=== PATIENT | female | born 1955 | race Caucasian/White ===

== ENCOUNTER 2016-10-26 13:01 | Outpatient (RCR) | payer MEDICARE, BC ==
[2015-07-17 17:22] VITALS: BP 166/81
[~2016-10-26 13:01] MED LIST: ALDACTONE 25MG25 MG PO; ALLEGRA 180MG180 MG PO; ALLOPURINOL100 MG PO; ATIVAN1 M1 PO; AVAPRO TAB150 MG/TAB PO; BENTYL 20MG TAB20 MG PO; BIMATOPROST OP; BISCOLAX10 M1 RC; BUDESONIDE0.5 MG/2 M INH; CALCIUM CARB W/1 TA1 PO; CALCIUM CARBONA1 TA2 PO; COLCRYS0.6 MG PO; COMBIGAN 0.2%-0.5 ML OU; COQ10150 MG PO; COREG25 MG PO; COUMADIN 22.5 MG/TAB PO; COUMADIN 5MG5 MG/TAB PO; CRANBERRY PO; CRANBERRY400 M3 PO; CYANOCOBAL1000 MCG/1 IM; DEMADEX 20MG20 M1 PO; DEMADEX20 MG PO; DIPHENHYDRAMINE25 MG PO; DURAGESIC TOP; DURAGESIC50 MCG/PAT TD; ED PHENERG6 TAB/BOTT PO; FENTANYL 75MCG TP; FENTANYL T100 MCG/HR TD; HUMALOG PEN100 U/ML SQ; HYDROCODONE/APAP PO; INTESTINEX1 CA1 PO; KEFLEX250 M1 PO; L-CARNITINE500 MG PO; LORTAB 10/3251 TAB PO; LOSARTAN POTAS100 MG PO; METOLAZONE5 MG PO; MULTIPLE VITAMI1 CAP PO; NATURE'S BLEND F1 MG PO; NITROGLYCERIN0.4 M1 PO; OXYCODONE HCL10 M1 PO; POTASSIUM CH2 MEQ/ML PO; POTASSIUM CHLO20 ME3 PO; PREDNISONE 5MG5 MG PO; RELION HUMUL100 U/ML SQ; ROBAXIN 75750 MG/TA1 PO; ROBAXIN 75750 MG/TAB PO; RT ALBUTER2.5 MG/0.5 IH; SINGULAIR PO; SINGULAIR10 MG PO; SOTALOL HYDROCH80 MG PO; STARLIX60 M1 PO; VIBRAMYCIN100 MG PO; VITAMIN B11000 MCG/M IM; VITAMIN D32000 I1 PO; ZYLOPRIM100 MG PO; ZYLOPRIM300 MG PO; [UNRECOGNIZED DRUG - OTHER] TOP
== END 2016-12-23 15:02 | disposition home or self-care (01) ==
LOC: PT 13:01
DX: R53.1 Weakness (principal); Z74.09 Other reduced mobility
CPT/HCPCS: G0283-GP

== ENCOUNTER 2017-04-28 14:00 | Outpatient (RCR) | payer MEDICARE, BC ==
[2015-07-17 17:22] VITALS: BP 166/81
== END 2017-04-28 14:30 | disposition home or self-care (01) ==
LOC: PT 14:00
DX: R53.1 Weakness (principal); L03.115 Cellulitis of right lower limb

== ENCOUNTER → 2017-06-20 | Outpatient (CLI) | payer MEDICARE, BC ==
[2015-07-17 17:22] VITALS: BP 166/81
== END ==
LOC: RAD 10:56
DX: N39.0 Urinary tract infection, site not specified (principal)

== ENCOUNTER → 2018-02-07 | Outpatient (CLI) | payer MEDICARE, BC ==
[2015-07-17 17:22] VITALS: BP 166/81
== END ==
LOC: RAD 09:41
DX: S49.91XA Unspecified injury of right shoulder and upper arm, initial encounter (principal); W19.XXXA Unspecified fall, initial encounter

== ENCOUNTER → 2018-03-14 | Outpatient (CLI) | payer MEDICARE, BC ==
[2015-07-17 17:22] VITALS: BP 166/81
== END ==
LOC: RAD 11:39
DX: M50.31 Other cervical disc degeneration, high cervical region (principal); M48.02 Spinal stenosis, cervical region

== ENCOUNTER → 2018-03-15 | Outpatient (CLI) | payer MEDICARE, BC ==
[2015-07-17 17:22] VITALS: BP 166/81
== END ==
LOC: RAD 13:07
DX: M25.511 Pain in right shoulder (principal)
CPT/HCPCS: J3301; Q9967

== ENCOUNTER → 2018-03-20 | Outpatient (CLI) | payer MEDICARE, BC ==
[2015-07-17 17:22] VITALS: BP 166/81
[2018-03-20 06:20] LABS: PROTHROMBIN TIME 15.9 SECONDS (9.0-12.0)
== END ==
LOC: LAB 05:20
PROVIDERS: Internal Medicine
DX: I48.0 Paroxysmal atrial fibrillation (principal)

== ENCOUNTER 2018-03-23 16:20 | Emergency (ER) | payer MEDICARE, BC ==
[~2018-03-23] VITALS: Ht 160 cm; Wt 116.8 kg
[2018-03-23] MEDS ORDERED: BENADRYL (16:34)
[2018-03-23] MEDS ORDERED: COENZYME Q10100 M1 PO (16:35)
[2018-03-23] MEDS ORDERED: CYMBALTA30 M1 PO (16:36)
[2018-03-23] MEDS ORDERED: DEPAKOTE250 M1 PO (16:36)
[2018-03-23] MEDS ORDERED: KEFLEX250 M1 PO (16:38)
[2018-03-23] MEDS ORDERED: GLUCOTROL 5M5 MG/TAB PO (16:38)
[2018-03-23] MEDS ORDERED: INSULIN HUMA100 U/ML SQ (16:38)
[2018-03-23] MEDS ORDERED: PERCOCET 325 MG1 TAB PO (16:40)
[2018-03-23] MEDS ORDERED: OXYCONTIN15 M1 PO (16:50)
[2018-03-23] MEDS ORDERED: OXAYDO7.5 MG PO (16:59)
[2018-03-23] MEDS ORDERED: PRIMLEV PO (17:02)
[2018-03-23 17:50] VITALS: BP 133/62
== END 2018-03-23 17:10 | disposition home or self-care (01) ==
LOC: ED 16:20
DX: G89.29 Other chronic pain (principal); M75.101 Unspecified rotator cuff tear or rupture of right shoulder, not specified as traumatic

== ENCOUNTER → 2018-03-28 | Outpatient (CLI) | payer MEDICARE, BC ==
[2018-03-23 17:50] VITALS: BP 133/62
[~2018-03-28] MED LIST changes: +BENADRYL; +COENZYME Q10100 M1 PO; +CYMBALTA30 M1 PO; +DEPAKOTE250 M1 PO; +GLUCOTROL 5M5 MG/TAB PO; +INSULIN HUMA100 U/ML SQ; +OXAYDO7.5 MG PO; +OXYCONTIN15 M1 PO; +PERCOCET 325 MG1 TAB PO; +PRIMLEV PO
== END ==
LOC: LAB 16:13
DX: J02.9 Acute pharyngitis, unspecified (principal)

== ENCOUNTER 2018-04-02 11:53 | Emergency (ER) | payer MEDICARE, BC ==
[~2018-04-02 11:53] MED LIST changes: -AMLODIPINE BESYL5 MG PO; -AMOXICILLIN 50500 MG PO; -COUMADIN 2MG2 MG/TAB PO; -DAILY VITAMIN1 EAC1 PO; -DURAGESIC75 MCG/PAT TD; -IMODIUM A-D2 M2 PO; -LATANOPROST 2.2.5 ML OU; -PERCOCET 325 MG1 TA5 PO; -PHENERGAN 25 TA25 MG PO; -PURE & GENTLE 330 ML OU; -TORSEMIDE20 M1 PO; -ZINC SULFATE220 MG PO
[2018-04-02] MEDS ORDERED: AMLODIPINE BESYL5 MG PO (12:17)
[2018-04-02] MEDS ORDERED: AMOXICILLIN 50500 MG PO (12:18)
[2018-04-02] MEDS ORDERED: BENADRYL (12:21)
[2018-04-02] MEDS ORDERED: PURE & GENTLE 330 ML OU (12:21)
[2018-04-02] MEDS ORDERED: DURAGESIC75 MCG/PAT TD (12:27)
[2018-04-02] MEDS ORDERED: COUMADIN 2MG2 MG/TAB PO (12:30)
[2018-04-02] MEDS ORDERED: IMODIUM A-D2 M2 PO (12:34)
[2018-04-02] MEDS ORDERED: DAILY VITAMIN1 EAC1 PO (12:40)
[2018-04-02] MEDS ORDERED: PERCOCET 325 MG1 TA5 PO (12:44)
[2018-04-02] MEDS ORDERED: TORSEMIDE20 M1 PO (12:48)
[2018-04-02] MEDS ORDERED: LATANOPROST 2.2.5 ML OU (12:49)
[2018-04-02] MEDS ORDERED: PHENERGAN 25 TA25 MG PO (12:54)
[2018-04-02] MEDS ORDERED: ZINC SULFATE220 MG PO (12:54)
[2018-04-02 12:59] LABS: HEMATOCRIT 40.2 % (37.0-47.0); HEMOGLOBIN 12.7 g/dL (12.5-16.0); MEAN CELL VOLUME 100 fl (78-100); MEAN CORPUSCULAR HEMOGLOBIN 32 pg (27-31); MEAN CORPUSCULAR HGB CONC 32 g/dL (33-37); MEAN PLATELET VOLUME 10.1 fl (7.4-10.4); PLATELET COUNT 267 K/mm3 (130-400); RED BLOOD COUNT 4.02 M/mm3 (4.10-5.30); RED CELL DISTRIBUTION WIDTH 14.3 % (11.5-14.5); WHITE BLOOD COUNT 13.8 K/mm3 (4.8-10.8)
[2018-04-02 13:10] LABS: ALBUMIN 3.3 g/dL (3.5-5.0); BUN/CREATININE RATIO 25.4 (6.0-26.0); CALCIUM 8.6 mg/dL (8.4-10.2); POTASSIUM 3.9 mmol/L (3.6-5.0); TOTAL BILIRUBIN 0.4 mg/dL (0.2-1.3); TOTAL PROTEIN 6.3 g/dL (6.3-8.2)
[2018-04-02 13:15] LABS: LYMPHOCYTE 15 % (20-51); MONOCYTE 2 % (3-10); NEUTROPHILS 81 % (42-75)
[2018-04-02 13:17] LABS: TROPONIN-I < 0.03 ng/mL (0.00-0.06)
[2018-04-02 13:59] LABS: URINE APPEARANCE CLEAR; URINE BILIRUBIN NEGATIVE (NEGATIVE); URINE BLOOD NEGATIVE (NEGATIVE); URINE COLOR YELLOW; URINE GLUCOSE NEGATIVE (NEGATIVE); URINE KETONE NEGATIVE (NEGATIVE); URINE LEUKOCYTE ESTERASE NEGATIVE (NEGATIVE); URINE NITRATE NEGATIVE (NEGATIVE); URINE PROTEIN(semi-quant) 1+ mg/dL (NEGATIVE); URINE UROBILINOGEN NORMAL (NORMAL)
[2018-04-02 16:51] VITALS: BP 119/53
== END 2018-04-02 17:35 | disposition short-term general hospital (02) ==
LOC: ED 11:53
PROVIDERS: Nurse Practitioner Primary Care
DX: A41.9 Sepsis, unspecified organism (principal); S71.002A Unspecified open wound, left hip, initial encounter; T81.89XA Other complications of procedures, not elsewhere classified, initial encounter; R10.814 Left lower quadrant abdominal tenderness; E66.9 Obesity, unspecified; Z90.5 Acquired absence of kidney; Z79.01 Long term (current) use of anticoagulants; Z88.1 Allergy status to other antibiotic agents; Z88.2 Allergy status to sulfonamides; Z79.899 Other long term (current) drug therapy; Z79.4 Long term (current) use of insulin; E11.22 Type 2 diabetes mellitus with diabetic chronic kidney disease; I12.9 Hypertensive chronic kidney disease with stage 1 through stage 4 chronic kidney disease, or unspecified chronic kidney disease; N18.9 Chronic kidney disease, unspecified
CPT/HCPCS: J1170; J2405; J2543; J3370; J7030; J7040; Q9967

== ENCOUNTER → 2018-04-02 | Outpatient (CLI) | payer MEDICARE, BC ==
[2018-03-23 17:50] VITALS: BP 133/62
[~2018-04-02] MED LIST changes: +AMLODIPINE BESYL5 MG PO; +AMOXICILLIN 50500 MG PO; +COUMADIN 2MG2 MG/TAB PO; +DAILY VITAMIN1 EAC1 PO; +DURAGESIC75 MCG/PAT TD; +IMODIUM A-D2 M2 PO; +LATANOPROST 2.2.5 ML OU; +PERCOCET 325 MG1 TA5 PO; +PHENERGAN 25 TA25 MG PO; +PURE & GENTLE 330 ML OU; +TORSEMIDE20 M1 PO; +ZINC SULFATE220 MG PO
== END ==
LOC: RAD 10:45
DX: M79.89 Other specified soft tissue disorders (principal); Z98.890 Other specified postprocedural states

== ENCOUNTER 2018-05-06 16:00 | Outpatient (RCR) | payer MEDICARE, BC ==
[2018-05-04 16:37] VITALS: BP 150/85
[2018-05-05 16:00] VITALS: BP 165/89
[~2018-05-06] VITALS: Ht 160 cm; Wt 124.8 kg
[~2018-05-06 16:00] MED LIST changes: +AMLODIPINE BESYL5 MG PO; +AMOXICILLIN 50500 MG PO; +COUMADIN 2MG2 MG/TAB PO; +DAILY VITAMIN1 EAC1 PO; +DURAGESIC75 MCG/PAT TD; +IMODIUM A-D2 M2 PO; +LATANOPROST 2.2.5 ML OU; +PERCOCET 325 MG1 TA5 PO; +PHENERGAN 25 TA25 MG PO; +PURE & GENTLE 330 ML OU; +TORSEMIDE20 M1 PO; +ZINC SULFATE220 MG PO
[2018-05-06 17:01] VITALS: BP 144/88
== END 2018-05-06 18:00 | disposition home or self-care (01) ==
LOC: AMSURD 16:00
DX: S71.002A Unspecified open wound, left hip, initial encounter (principal); B95.62 Methicillin resistant Staphylococcus aureus infection as the cause of diseases classified elsewhere; Z95.828 Presence of other vascular implants and grafts; Z45.2 Encounter for adjustment and management of vascular access device; Z48.00 Encounter for change or removal of nonsurgical wound dressing
CPT/HCPCS: J0878

== ENCOUNTER → 2018-05-31 | Outpatient (CLI) | payer MEDICARE, BC ==
[2018-05-30 10:21] VITALS: BP 171/66
== END ==
LOC: LAB 11:17
DX: E04.1 Nontoxic single thyroid nodule (principal)

== ENCOUNTER 2018-06-02 10:30 | Outpatient (RCR) | payer MEDICARE, BC, OTHER ==
[2018-05-29 10:15] VITALS: BP 155/79
--- NOTE | 2018-05-29 10:30 | NUR ---
Attempt x 2 to access port in R chest. Upon initial attempt, there was no blood return, pt c/o increased pain at insertion site and denies "tasting" NS, of which approx 5ml of flush was pushed prior to d/c needle. Accessed port on 2nd attempt without difficulty, brisk blood return and flushed easily.
[2018-05-29 11:22] VITALS: BP 169/88
[2018-05-30 09:16] VITALS: BP 165/89
[2018-05-30 10:21] VITALS: BP 171/66
--- NOTE | 2018-05-31 11:10 | NUR ---
LAB DRAWN FROM PORT PRIOR TO STARTING ABX INFUSION.
[2018-05-31 11:14] VITALS: BP 166/96
[2018-05-31 12:22] VITALS: BP 170/91
[2018-06-01 10:34] VITALS: BP 178/87
[2018-06-01 11:38] VITALS: BP 170/105
[~2018-06-02] VITALS: Ht 160 cm; Wt 124.8 kg
[2018-06-02 10:42] VITALS: BP 164/73
[2018-06-02 11:49] VITALS: BP 159/73
--- NOTE | 2018-06-02 12:33 | NUR ---
Cayla, RN at [facility] contacted at this time. Cayla faxed over order from Dr. Tinoco saying that Gentamicin should be stopped today, 06/02. This RN asked Cayla to pull patient's port. Cayla states she will pull port-a-cath at this time.
[2018-08-27] MEDS ORDERED: ELIQUIS5 MG PO (16:51)
[2018-08-27] MEDS ORDERED: METHADONE HYDROC5 MG PO (16:52)
[2018-08-27] MEDS ORDERED: DOXYCYCLINE HY200 MG PO (16:53)
== END 2018-08-27 | disposition home or self-care (01) ==
LOC: AMSURD
PROVIDERS: Family Medicine
DX: N39.0 Urinary tract infection, site not specified (principal); B99.9 Unspecified infectious disease
CPT/HCPCS: J1580; J1644

== ENCOUNTER → 2018-06-08 | Outpatient (CLI) | payer MEDICARE, BC ==
[2018-06-02 11:49] VITALS: BP 159/73
== END ==
LOC: RAD 12:56
DX: R22.41 Localized swelling, mass and lump, right lower limb (principal)

== ENCOUNTER → 2018-08-27 | Outpatient (CLI) | payer MEDICARE, BC ==
[~2018-08-27] MED LIST changes: +DOXYCYCLINE HY200 MG PO; +ELIQUIS5 MG PO; +METHADONE HYDROC5 MG PO
[2018-08-27 18:26] LABS: ALBUMIN 3.2 g/dL (3.5-5.0); POTASSIUM 4.8 mmol/L (3.6-5.0); TOTAL BILIRUBIN 0.2 mg/dL (0.2-1.3)
== END ==
LOC: LAB 16:15
PROVIDERS: Family Medicine
DX: E83.59 Other disorders of calcium metabolism (principal)

== ENCOUNTER 2018-08-29 16:37 | Outpatient (RCR) | payer MEDICARE, BC ==
[2018-08-27 16:16] VITALS: BP 124/53
[2018-08-27 17:18] VITALS: BP 138/85
[2018-08-27 17:54] VITALS: BP 152/88
[~2018-08-29] VITALS: Ht 160 cm; Wt 124.8 kg
[2018-08-29 16:22] VITALS: BP 133/72
[~2018-08-29 16:37] MED LIST changes: +BENADRYL PO; +COZAAR25 M1 PO; +DOXYCYCLINE HY150 M1 PO; -DOXYCYCLINE HY200 MG PO; +IPRATROPIUM BROM3 M1 IH; -LOSARTAN POTAS100 MG PO; +METHADONE HYDRO10 MG PO; -METHADONE HYDROC5 MG PO; -RT ALBUTER2.5 MG/0.5 IH; +ZYLOPRIM 100MG100 MG PO; -ZYLOPRIM300 MG PO
[2018-08-29 17:26] VITALS: BP 142/74
[2018-09-06] MEDS ORDERED: METOCLOPRAMIDE H5 M1 PO (15:51)
[2018-09-06] MEDS ORDERED: LIDOCAINE PAIN1 EACH TOP (15:51)
[2018-09-06] MEDS ORDERED: DOCUSATE SODIUM1 TA3 PO (15:52)
[2018-09-06] MEDS ORDERED: ACETAMINOPHEN325 M1 PO (15:57)
[2018-09-06] MEDS ORDERED: ALBUTEROL2.5 MG/3 M IH (16:00)
[2018-09-06] MEDS ORDERED: ALPHAGAN OU (16:01)
[2018-09-06] MEDS ORDERED: COENZYME Q10100 M1 PO (16:03)
[2018-09-06] MEDS ORDERED: OXYCONTIN15 M1 PO (16:07)
[2018-09-06] MEDS ORDERED: XYLIMELTS550 MG PO (16:09)
[2018-09-06] MEDS ORDERED: GLUCOTROL 5M5 MG/TAB PO (16:35)
[2018-09-18] MEDS ORDERED: PHENERGAN 25 TA25 MG PO (11:16)
[2018-09-18] MEDS ORDERED: ACETAMINOPHEN-H1 TA2 PO (11:18)
[2018-09-18] MEDS ORDERED: METOCLOPRAMIDE H5 M1 PO (11:20)
== END 2018-11-25 | disposition still patient (30) ==
LOC: AMSURD
DX: E83.59 Other disorders of calcium metabolism (principal); F11.90 Opioid use, unspecified, uncomplicated; Z79.84 Long term (current) use of oral hypoglycemic drugs; Z79.899 Other long term (current) drug therapy
CPT/HCPCS: J2405

== ENCOUNTER 2018-09-06 09:55 | Inpatient (IN) | payer MEDICARE, BC ==
[~2018-09-06] VITALS: Ht 160 cm; Wt 124.8 kg
--- NOTE | 2018-09-06 15:14 | NUR ---
PATIENT ARRIVES TO FACILITY FOR SWINGBED ADMIT FROM [facility]. DAUGHTER TRANSPORTED. PATIENT ABLE TO PIVOT TRANSFER WITH MINIMAL ONE PERSON ASSIST. PATIENT RATES PAIN 8/10. SHE DOES HAVE CHRONIC PAIN AND REPORTS A TOLERABLE NUMBER AT 7/10 OR BELOW. NURSE REPORT RECEIVED FROM NATALIE AT [facility]; HER NUMBER FOR ANY QUESTIONS IS [phone]. NATALIE REPORTED THAT PORT-A-CATH WAS ACCESSED AND HAD ORDERS TO DE-ACCESS PRIOR TO DC, BUT PATIENT WAS REFUSING. PATIENT DOES ARRIVE WITH PORT-A-CATH ACCESSED. NEXT NEEDLE CHANGE DUE FOR 09/09/18. PATIENT REPORTED TO NATALIE THAT SHE RECEIVED SODIUM THIOSULFATE M,W,F AN OUTPATIENT AT THIS FACILITY PRIOR TO HER HOSPITAL ADMISSION AND SHE WAS HOPING TO RESUME THOSE INFUSIONS A SWINGBED.
[2018-09-06 15:21] VITALS: BP 150/97
[2018-09-06] MEDS ORDERED: METOCLOPRAMIDE H5 M1 PO (15:51)
[2018-09-06] MEDS ORDERED: LIDOCAINE PAIN1 EACH TOP (15:51)
[2018-09-06] MEDS ORDERED: DOCUSATE SODIUM1 TA3 PO (15:52)
[2018-09-06] MEDS ORDERED: ACETAMINOPHEN325 M1 PO (15:57)
[2018-09-06] MEDS ORDERED: ALBUTEROL2.5 MG/3 M IH (16:00)
[2018-09-06] MEDS ORDERED: ALPHAGAN OU (16:01)
[2018-09-06] MEDS ORDERED: COENZYME Q10100 M1 PO (16:03)
[2018-09-06 16:07] VITALS: BP 150/97
[2018-09-06] MEDS ORDERED: OXYCONTIN15 M1 PO (16:07)
[2018-09-06] MEDS ORDERED: XYLIMELTS550 MG PO (16:09)
[2018-09-06] MEDS ORDERED: GLUCOTROL 5M5 MG/TAB PO (16:35)
--- NOTE | 2018-09-06 17:15 | NUR ---
YASSINE, UTILITY PIPE LAYER, AT BEDSIDE WITH PATIENT FOR DIETARY EVAL.
[2018-09-06 17:33] LABS: EOS % 7.3 % (1.0-5.0); HEMATOCRIT 36.3 % (37.0-47.0); HEMOGLOBIN 11.9 g/dL (12.5-16.0); MEAN CELL VOLUME 88 fl (78-100); MEAN CORPUSCULAR HEMOGLOBIN 29 pg (27-31); MEAN CORPUSCULAR HGB CONC 33 g/dL (33-37); MEAN PLATELET VOLUME 10.7 fl (7.4-10.4); NEU # 4.6 (1.40-6.50); PLATELET COUNT 351 K/mm3 (130-400); RED BLOOD COUNT 4.13 M/mm3 (4.10-5.30); RED CELL DISTRIBUTION WIDTH 14.9 % (11.5-14.5); WHITE BLOOD COUNT 11.4 K/mm3 (4.8-10.8)
[2018-09-06 17:39] LABS: ALBUMIN 3.1 g/dL (3.5-5.0); CALCIUM 9.1 mg/dL (8.4-10.2); POTASSIUM 3.4 mmol/L (3.6-5.0); TOTAL BILIRUBIN 0.3 mg/dL (0.2-1.3); TOTAL PROTEIN 6.3 g/dL (6.3-8.2)
[2018-09-06 17:55] LABS: EOS # 0.8 (0.04-0.40); LYMPH# 4.8 (1.50-4.00)
[2018-09-06 18:32] VITALS: BP 140/77
--- NOTE | 2018-09-06 19:30 | NUR ---
Bedside shift report received from Luna Quintana RN. Pt resting in bed, awake and a/o x 3. Son at bedside. Pt denied having any needs or concerns at this time.
--- NOTE | 2018-09-06 22:30 | NUR ---
Pt requested that her pain medication be reviewed tomorrow. I informed pt that I would report this to the day shift. Pt agreed.
--- NOTE | 2018-09-06 22:30 | NUR ---
Pt c/o of "over all body pain." Given norco PO for pt. Given sugarfree jello, ate 100%
--- NOTE | 2018-09-07 04:33 | NUR ---
Awake and a/o x 3, resting in bed. Has been wearing C-Pap. C/o's of over all body pain. Rates pain 9 out 10. Given norco PO.
[2018-09-07 06:25] VITALS: BP 158/78
--- NOTE | 2018-09-07 06:50 | NUR ---
Dr Schaeffer into see pt. No new orders
--- NOTE | 2018-09-07 07:25 | NUR ---
Bedside shift report given to Amanda Magallanes RN
--- NOTE | 2018-09-07 07:30 | NUR ---
Q hourly checks done. Bed alarm set and call light with in reach of pt.
--- NOTE | 2018-09-07 14:30 | NUR ---
Pt calls for additional pain Rx. Inform that [place] is q6h to which pt states, "well don't I have something for breakthrough?" Pt is informed that she has [place] for breakthrough pain which she then requests. Pt reports that she is having "sciatica" pain to the R buttock and describes as "pins and needles". Ask pt how long she has been sitting up in chair and pt agrees that she has been up to WC for 2-3 hours and pain could be related to positioning. Pt did take lidocaine patch from top of R foot and place on R buttock to attempt ease pain. Pt is assisted to BR and back into bed by AIRPORT SALES AGENT.
--- NOTE | 2018-09-07 17:43 | NUR ---
Pt is lying in bed on R side, looking as though she is going to fall out of bed. Attempt to athletic coach pt to move herself over in bed, she is unable to do so. Add draw sheet to bed and with assist of two, assist pt to move up and toward the middle of bed.
[2018-09-07 19:00] VITALS: BP 96/61
--- NOTE | 2018-09-07 20:30 | NUR ---
Report received from Amanda BISHOP. Patient rests in bed. States she has to go to BR. Assisted to W/C with one assist and gait belt. Transfers from W/C to toilet with SBA using grab bar. Voids 300 ML of dark yellow cloudy urine. Dons own pajamas. Assisted back to bed with some assistance to get feet up in bed. Assessment completed. Requires on Port a cath being flushed. "it wasn't flushed today and it should be. Port flushed with 10 ML of NS and 5 ML of heparin. Flushed easily with good blood return. Reviewed HS medications. Patient states that her Oxycodone should be every 4 hours vs the 6 hours ordered. "I thought pallative care called today and got that straightened out". This nurse inquires to day nurse. Orders received from [facility] copied and hightlighted and provided to patient. Orders from [facility] state every 6 hours. Day nurse also advises that Pallative care did call and patient oxycodone was to be IR instead of ER which we are now giving. "I will just have to call my daughter then". This nurse also advised that it was reported that patent received Narcan at some point at and maybe that is why the dose was cut down but that by no means am I being judgmental or can speak for the ordering Dr or Dr's. Patient states "I heard that too, but thats not why I went to the ER, it's because I didn't wear this thing, pointing to her CPAP.
--- NOTE | 2018-09-07 22:59 | NUR ---
Reports stomach upset. Asking for something. Reglan 5 MG given PO. Asking when she can have more pain medication. Advised Midnight for scheduled Oxycodone. Asked about PRN Hydrocodone. Advised she had that at 2030 and could have again at 0. States to CHARGEBACK ANALYST that she just wants to sit up on the EOB at this time. She is in "too much pain".
--- NOTE | 2018-09-07 23:11 | NUR ---
Reports pain, asking for pain medication early. Advised she has Tylenol ordered. Refused. "can't that give it to me early?". My sciatica is acting up. Offered and agreeable to try a K-pad.
--- NOTE | 2018-09-08 | NUR ---
Scheduled Roxicodone given at this time. Patient also request Phenergan at this time for continues nausea, not releaved by Reglan. Phenergan taken also at this time. Lays down in bed at this time and puts on CPAP. Rates pain 10/10. Denies further wants or needs.
--- NOTE | 2018-09-08 02:39 | NUR ---
Currently resting quietly with CPAP in place. No signs of pain or distress. Bed alarm on. Call light in reach.
--- NOTE | 2018-09-08 03:17 | NUR ---
Calls and requests warm blanket and pain pill for pain 05/07. "all over". [place] 1 tab taken. Repositioned for comfort.
--- NOTE | 2018-09-08 05:50 | NUR ---
Awaken for scheduled AM medications. Had removed CPAP. States she took it off around 0530. Encouraged to wear. Takes AM medications. Denies wants or needs.
[2018-09-08 06:25] VITALS: BP 120/71
--- NOTE | 2018-09-08 07:17 | NUR ---
Report to Colleen BISHOP.
--- NOTE | 2018-09-08 07:50 | NUR ---
Pt awakened for breakfast. Pleasant. Able to rise from bed and get self into w/c with minimal assist. Pt to BR to void and then into recliner for breakfast. Pt c/o pain "right sciatica" this am and received breakthrough pain med this am. 9/10 on 10 scale. Telemetry continues - atrial fib rates 70's. Call light in reach and chair alarms on.
--- NOTE | 2018-09-08 10:00 | NUR ---
To BR using w/c - voids and washes up while in BR w/ warm cloth wipes. Assisted w/ pericare and assisted w/ dressing. Transfers w/ minimal assist to w/c and performs own am cares and returns to recliner. Denies further needs.
--- NOTE | 2018-09-08 15:20 | NUR ---
Pt requested back to bed and took short nap. Up to recliner at this time using w/c and minimal assist.
--- NOTE | 2018-09-08 17:57 | NUR ---
Pt given reglan per request for nausea. UP in chair - transfers from w/c w/ little assist. Took dinner well.
[2018-09-08 18:38] VITALS: BP 125/85
--- NOTE | 2018-09-08 19:26 | NUR ---
Pt agreeable to miralax for lack of stool x 2-3 days. Pt reports she thinks gout is returning to her right foot. Notified. Pt up in recliner. Denies further needs at this time. call light in reach and chair alarm on. Report to DARIO Larios.
--- NOTE | 2018-09-08 23:30 | NUR ---
Used call light, up to bathroom per wheel chair. No c/o's of pain. When asked pt C/o's of "all over body pain." Rates pain 9 out 10. Given scheduled oxycodone 15mg PO.
--- NOTE | 2018-09-09 06:10 | NUR ---
0600 Pt c/o of "over all body pain." Given oxycodone PO. C/o of nausea given phenergan PO.
[2018-09-09 06:22] VITALS: BP 111/74
--- NOTE | 2018-09-09 07:05 | NUR ---
Bedside shift report given to Colleen Thomas RN
--- NOTE | 2018-09-09 08:25 | NUR ---
Blood drawn from port for lab. 10 mls wasted, 8 mls drawn and Port flushed w/ 10 mls of NS and 5 mls of heplock.
[2018-09-09 08:52] LABS: CALCIUM 8.6 mg/dL (8.4-10.2); POTASSIUM 3.5 mmol/L (3.6-5.0)
[2018-09-09 08:53] LABS: EOS # 0.4 (0.04-0.40); HEMATOCRIT 34.1 % (37.0-47.0); HEMOGLOBIN 10.6 g/dL (12.5-16.0); LYMPH# 3.6 (1.50-4.00); MEAN CELL VOLUME 90 fl (78-100); MEAN CORPUSCULAR HEMOGLOBIN 28 pg (27-31); MEAN CORPUSCULAR HGB CONC 31 g/dL (33-37); MEAN PLATELET VOLUME 10.5 fl (7.4-10.4); MONO # 0.6 (0.20-0.80); NEU # 2.6 (1.40-6.50); PLATELET COUNT 357 K/mm3 (130-400); RED BLOOD COUNT 3.78 M/mm3 (4.10-5.30); RED CELL DISTRIBUTION WIDTH 15.4 % (11.5-14.5); WHITE BLOOD COUNT 7.3 K/mm3 (4.8-10.8)
[2018-09-09 09:40] LABS: ERYTHROCYTE SEDIMENTATION RATE 30 mm/hr (0-30)
--- NOTE | 2018-09-09 13:15 | NUR ---
Pt's daughter here briefly and brings an essential oil diffuser for pt's room per pt's request. Pt denies further needs. Pt up in recliner working puzzles.
--- NOTE | 2018-09-09 15:07 | NUR ---
Discussed new prn cholchicine - pt information given. Given 1 tab for "bad" right great toe pain. Pt up to BR - transfer to w/c w/ SBA and then to toilet - voids and then returns to bed. Pt states she hasn't stooled x 2 days (has had miralax and senna) - options given. Pt would like to try her "smooth move tea" and will have son bring it in.
--- NOTE | 2018-09-09 16:40 | NUR ---
Port deaccessed at this time as needle needs changed today. Talked with pt and decided to leave port deaccessed until needed for further lab draws. Pt information given on colchicine per pt's request.
[2018-09-09 18:32] VITALS: BP 105/60
--- NOTE | 2018-09-09 19:15 | NUR ---
Jonathan Becerra given per pt's request. Dr. Mccarty notified that pt commented that she usually ups her allopurinol when has gout flare. Pt resting in bed - no further requests at this time. Report to SOCRATES English>
--- NOTE | 2018-09-09 20:30 | NUR ---
Report received from Colleen BISHOP. Patient resting in bed. A/O x4. Rates pain after [place] 04/06. "it's my Sciatica". Assessment completed. Scheduled HS medications taken. Utilizing K-Pad PRN for pain. Denies wants or needs. Bed alarm on. Call light in reach.
--- NOTE | 2018-09-09 23:30 | NUR ---
Requests pain and nausea medication. Scheudled Oxycodone and Phenergan given. CLIENT SUPPORT ADMINISTRATOR in to assist to BR and with CPAP. SCD's on. Denies further wants or needs.
--- NOTE | 2018-09-10 05:51 | NUR ---
Am medication taken. Refuses Doxycycline at this time. Wants to wait until she eats something.
[2018-09-10 06:23] VITALS: BP 109/54
--- NOTE | 2018-09-10 07:31 | NUR ---
Report to Barbara BISHOP.
--- NOTE | 2018-09-10 12:25 | NUR ---
Aston Solano APRN notified of itchy rash under bilateral breast, worse on right.
--- NOTE | 2018-09-10 16:14 | NUR ---
Cristela palliative care nurse of Dr. Garcia at [facility] called with instructions to increase methadone dose. Currently taking methadone 7.5mg at 0900 and 2100. New orders for additional dose of 5mg at 1500. Aston Solano APRN notified. Patient updated. Cristela states that she will call the patient's daughter to update her on the plan of care.
--- NOTE | 2018-09-10 18:28 | NUR ---
Eduardo Flores APRN at bedside to assess rash under breast.
[2018-09-10 18:59] VITALS: BP 134/83
--- NOTE | 2018-09-10 21:30 | NUR ---
Report received from Barbara BISHOP. Patient resting supine in bed with bed alarm on. A/O x4. Rates pain 04/06. R sided schiatica and R great toe pain. Had scheduled analgesic 30 min ago. Assessment completed. Asks for copy of current lab and copies provided. Diet coke given per request. Denies further wants or needs.
[2018-09-11 06:30] VITALS: BP 116/72
--- NOTE | 2018-09-11 07:07 | NUR ---
Report to Barbara BISHOP.
[2018-09-11 18:51] VITALS: BP 131/71
--- NOTE | 2018-09-11 21:30 | NUR ---
Report received from Barbara BISHOP. Patient resting in bed. A/O x4. Assisted to BR with SBA to W/C-toilet- W/C-Bed. Voiding clear yellow urine. Requests and given [place] 1 tab for pain, rated 9/10. States her Sciatica pain is "better" but her R foot continues to hurt and she has chronic pain "all over". Lungs CTA, diminished in bases due to body habitus. Denies cough. States she did get "short of breath" during her shower today and over all fatiqued. Area below breast, especially R breast continues to bed red and angry looking. Nystatin powder applied and interdry placed. TELE in place, continues to be in A-fib. R foot remains with 2+ edema. Accu check 248. Received 4 Units SS Novolog in GOOD. Denies further wants or needs. CPAP applied.
--- NOTE | 2018-09-12 | NUR ---
Pain level 9/10 per report. Scheduled Oxycodone received. Requests and given Phenergan at this time. Request sugar free pudding. Ate 100%.
--- NOTE | 2018-09-12 03:34 | NUR ---
Calls and requests [place] for pain to R hip 05/07. [place] and diet coke provided per request.
[2018-09-12 06:15] VITALS: BP 107/69
--- NOTE | 2018-09-12 07:22 | NUR ---
Report to Shreya BISHOP.
--- NOTE | 2018-09-12 07:30 | NUR ---
REPORT RECEIVED FROM JUAN PALBO. PATIENT IN ROOM SLEEPING WITH DOOR SHUT DURING REPORT.
--- NOTE | 2018-09-12 13:30 | NUR ---
APPLIED UNNA BOOTS TO BILATERAL LOWER LEGS TODAY AT PATIENT'S REQUEST FOR SWELLING/EDEMA. PATIENT TOLERATED WELL.
--- NOTE | 2018-09-12 17:55 | NUR ---
PATIENT WAS UP IN CHAIR AND WHEELCHAIR TODAY. WORKED WITH OT AND OT SUGGESTS THAT WHEN PATIENT STANDS TO TRANSFER TO HAVE HER CONTINUE TO STAND, FOR UP TO 30 SECONDS BEFORE SITTING BACK DOWN TO GAIN STRENGTH IN HER LEGS. PATIENT IS WANTING TO DO THIS WELL AND IS WILLING TO SIT UP MORE. PATIENT DOES C/O OF PAIN AND MEDS ARE GIVEN SCHEDULED WITH [place] Q 4 HOURS WELL. PATIENT HAD HER DOCTOR APPOINTMENTS RESCHEDULED TO NEXT WEEK POST DISCHARGE. HER DAUGHTER BROUGHT IN HER ELECTRIC WHEELCHAIR FOR HER TO USE WITH THERAPY. LOOKING AT DISCHARGE NEXT MONDAY.
[2018-09-12 18:22] VITALS: BP 113/84
--- NOTE | 2018-09-12 20:45 | NUR ---
Requesting [place] for pain to R lower back/Sciatica pain 05/07. Scheduled HS medications and PRN [place] given at this time. Accucheck 188. Received 2 Units of Humalog insulin. Assessment completed. Unaboots in place to BLE. Denies wants or needs.
[2018-09-13 06:21] VITALS: BP 123/72
--- NOTE | 2018-09-13 07:45 | NUR ---
Report to Amanda BISHOP.
--- NOTE | 2018-09-13 10:00 | NUR ---
Pt A&O. Is requesting [place] in addition to Oxycontin and Methadone. Also requests PRN phenergan along with scheduled Reglan. Pt is educated about giving Reglan a chance to work prior to adding phenergan. Pt reluctantly agreed then called a short time later requesting again. Pt also requests that time of admin of [place] be written down on whiteboard.
[2018-09-13 18:36] VITALS: BP 110/73
--- NOTE | 2018-09-13 19:30 | NUR ---
Bedside shift report received from Amanda Magallanes RN. Pt resting in bed, awake and a/o x 3. No c/o's voiced. Bed alarm set and call light with in reach of pt.
--- NOTE | 2018-09-13 22:38 | NUR ---
C/o's of "over all body pain and gout pain." Rates pain 9.5 out 10. Given scheduled medication and norco PO. Offered food with medication, pt declined. 2220 Pt up to bathroom per electric wheel chair, stand by assistance.
--- NOTE | 2018-09-14 05:00 | NUR ---
Q hourly checks done. Bed alarm set and call light with in reach of pt. Pt has woren Bi-pap mask throughout the night.
--- NOTE | 2018-09-14 05:07 | NUR ---
Awake and a/o x 3. C/o's of right leg and foot pain. Rates pain 9 out 10. Offered norco or to give schedule oxycodone now. Pt request oxycodone. Offered pt food with medication. Pt declined.
[2018-09-14 06:18] VITALS: BP 112/71
--- NOTE | 2018-09-14 07:12 | NUR ---
Bedside shift report given to Christa Mercado RN
--- NOTE | 2018-09-14 07:15 | NUR ---
BEDSIDE REPORT RECEIVED FROM DARIO WANG
--- NOTE | 2018-09-14 08:00 | NUR ---
PATIENT'S SHIFT ASSESSMENT COMPLETE. PATIENT ALERT AND ORIENTED X4. REPORTS HAVING PAIN IN RIGHT FOOT RATED 9/10. PATIENT REPORTS HAVING SHORTNESS OF BREATH. REPORTS THAT SHORTNESS OF BREATH IS UNCHANGED FROM BASELINE. PATIENT REPORTS THAT WEIGHT IS UP THIS MORNING. UNNA BOOTS IN PLACE TO BILAT LOWER EXT. PATIENT ON ROOM AIR. ALL LIGHT WITHIN REACH.
--- NOTE | 2018-09-14 09:30 | NUR ---
REMOVED UNNA BOOTS ON BLE, PER PATIENT REQUEST. SHE WILL WORK WITH OT TODAY WITH SHOWER AT 1030.
--- NOTE | 2018-09-14 10:00 | NUR ---
Carlos COOPER APRN NOTIFIED OF PATIENT'S WEIGHT INCREASE FROM YESTERDAY TO TODAY. NOTIFIED THAT WEIGHT HAS SLOWLY BEEN INCREASING AT THAT ON 09/07/18 IT WAS 267.8. NO NEW ORDERS AT THIS TIME.
--- NOTE | 2018-09-14 15:45 | NUR ---
Pt has chosen [facility] for HH services to include SN/PT/OT/BathAide and Textile Engineer and all disciplines to also work w/ Palliative Care Team. Pt's daughter has rescheduled all of pt's appointments for her convenience after pt is discharged from [facility] on 09-18-18. Palliative Care Team Nurse, Vianney was notified and also notified of HH services to insure there is no duplication of services - there was not. Nursing staff on this date is notified to present pt w/ BIPA form - 2 day MCR notice of discharge on Monday09-16-18 for anticipated discharge to home on 09-18-18.
[2018-09-14 18:52] VITALS: BP 108/69
--- NOTE | 2018-09-14 19:15 | NUR ---
Bedside shift report received from Christa Mercado RN. Pt resting in bed awake and a/o x 3. Bed alarm set and call light with in reach of pt. C/o's of right knee hurting, right leg and right foot. Request norco with evening medication.
--- NOTE | 2018-09-14 19:30 | NUR ---
BEDSIDE REPORT GIVEN TO DARIO WANG
--- NOTE | 2018-09-14 21:06 | NUR ---
Awake and a/o x 3. Sitting up on side of bed eating sandwich for evening snack. C/o's of right leg pain, right knee pain and right foot pain. Rates pain 9 out 10. Given norco 1 PO. Call light with in reach of pt.
--- NOTE | 2018-09-14 22:51 | NUR ---
Pt c/o's of right and left lower legs itching. Legs unwrapped per pt request.
--- NOTE | 2018-09-15 05:57 | NUR ---
0512 Awake and a/o x 3, used electric wheel chair to bathroom. Pt able to stand and transfer from bed to wheel chair and wheel to bathroom. Pt returned to bed. Lower legs continue to unwrapped. Offered to re-wrap pt's legs. Pt declined. C/o of right leg pain and foot pain. Given scheduled oxycodone. Visited with pt in room for approx 30 minutes. Pt pleasant and talkative.
[2018-09-15 06:33] VITALS: BP 138/86
--- NOTE | 2018-09-15 07:10 | NUR ---
BEDSIDE REPORT RECIEVED FROM DARIO WANG
--- NOTE | 2018-09-15 07:15 | NUR ---
Bedside shift report given to Christa Mercado RN
[2018-09-15 18:37] VITALS: BP 129/77
--- NOTE | 2018-09-15 19:33 | NUR ---
BEDSIDE REPORT GIVEN TO DARIO MIMS
--- NOTE | 2018-09-15 20:14 | NUR ---
Assessment complete. Patient resting in bed. Denies pain at this time. Call light and personal belongings within reach. Bed alarm on and active. Will cont to monitor.
--- NOTE | 2018-09-16 01:14 | NUR ---
Report received from Noelle BISHOP. Patient rests in bed with eyes closed. CPAP in place. Bed alarm on. No signs of pain or distress.
--- NOTE | 2018-09-16 01:36 | NUR ---
Rings call light. Requests analgesic and leg wraps removed. States the pain woke her up out of sleep. Rates 05/07. Wraps removed. Hydrocodone 1 tab taken at this time. Up to BR with SBA and motorized scooter. Voids 250 ML of clear yellow urine. Back to bed with SBA. Requests and given diet coke. Bed alarm on. Call light in reach. CPAP on.
[2018-09-16 06:15] VITALS: BP 143/83
--- NOTE | 2018-09-16 07:16 | NUR ---
Report to Christa BISHOP.
[2018-09-16 18:31] VITALS: BP 108/54
--- NOTE | 2018-09-16 20:20 | NUR ---
Report received from Christa BISHOP. Resting in bed, watching [employer] FB game. Requests analgesic for R leg pain 05/07. Scheduled HS medications and PRN [place] taken at this time. Desenex powder applied to R breast. Remains red but much improved. Inner dry applied after Desenex. Assessment completed. Audie wraps applied to BLE per order. Denies further wants or needs. Utilizes electric scooter with SBA for mobility to and from BR. Bed alarm on. Call light in reach.
[2018-09-17 06:11] VITALS: BP 157/89
--- NOTE | 2018-09-17 08:00 | NUR ---
PATIENT'S WEIGHT UP 4 POUNDS FROM YESTERDAY. PATIENT UP 10 POUNDS FROM ADMISSION. PATIENT REPORTS HAVING INCREASED SHORTNESS OF BREATH THIS MORNING WHEN GETTING UP TO GO TO THE BATHROOM. PATIENT'S LOWER EXT DO APPEAR TO BE A LITTLE MORE EDEMATOUS THIS MORNING THAT YESTERDAY FROM THIS NURSES ASSESSMENT. Carlos COOPER APRN NOTIFIED. Carlos COOPER APRN REPORTS THAT PATIENT'S WEIGHT FLUXUATES.STATES WE WILL SEE WHAT PATIENT'S WEIGHT IS TOMORROW. NO NEED FOR INTERVENTION AT THIS TIME
--- NOTE | 2018-09-17 15:00 | NUR ---
PATIENT HAS BRIGHT RED SLIGHTLY RAISED IN SOME AREAS RASH TO RIGHT ARM PIT. PATIENT REPORTS AREA COWART. PATIENT REQUESTED Carlos COOPER APRN LOOK AT RASH. PATIENT ALSO REQUESTED FOLLOW UP URIC ACID LAB BE ORDERED PRIOR TO DISCHARGE. Carlos COOPER APRN NOTIFIED. PROVIDER REPORTS THERE IS NO NEED TO LOOK AT RASH AND TO PUT DESSENEX POWDER ON AREA.
[2018-09-17 18:36] VITALS: BP 136/82
--- NOTE | 2018-09-17 19:45 | NUR ---
Report received from Christa BISHOP. Resting in bed. A/O x4. Rates pain 9/10 to R leg. Requested and given Hydrocodone 1 tab. Assessment completed. Denies wants or needs.
--- NOTE | 2018-09-18 05:51 | NUR ---
Rested on and off through the night with CPAP on. Requested PRN analgesic per her normal routine. Refused leg wraps last night, "My leg is hurting too bad". AM medication taken, Up to BR per mobilized W/C..
[2018-09-18 06:19] VITALS: BP 116/69
--- NOTE | 2018-09-18 07:12 | NUR ---
Report to Amanda BISHOP.
[2018-09-18] MEDS ORDERED: PHENERGAN 25 TA25 MG PO (11:16)
[2018-09-18] MEDS ORDERED: ACETAMINOPHEN-H1 TA2 PO (11:18)
[2018-09-18] MEDS ORDERED: METOCLOPRAMIDE H5 M1 PO (11:20)
--- NOTE | 2018-09-18 12:27 | NUR ---
Discussed d/c instructions with pt and daughter, Emily. Both acknowledge understanding. Pt is given written Rx for Methadone 10mg and [place], contact [facility] and verified availability of Methadone. Inform daughter that all other meds had been escripted to pharmacy. Pt reports that she has already been called by to set up appt time tomorrow. Pt daughter has already taken pt CPAP and electric WC home, last remaining items escorted out via WC with pt at this time. Pt able to stand, step up onto pt provided step and gets self into back seat.
== END 2018-09-18 12:27 | disposition home health service (06) | DRG 947 ==
LOC: MED/SURG 09:55
PROVIDERS: Family Medicine; ADMIT Nurse Practitioner Primary Care
DX: R53.81 Other malaise (principal); G93.41 Metabolic encephalopathy; J96.01 Acute respiratory failure with hypoxia; A41.9 Sepsis, unspecified organism; R65.21 Severe sepsis with septic shock; I13.0 Hypertensive heart and chronic kidney disease with heart failure and stage 1 through stage 4 chronic kidney disease, or unspecified chronic kidney disease; I50.32 Chronic diastolic (congestive) heart failure; Z68.42 Body mass index [BMI] 45.0-49.9, adult; Z66 Do not resuscitate; N18.2 Chronic kidney disease, stage 2 (mild); E11.22 Type 2 diabetes mellitus with diabetic chronic kidney disease; E11.43 Type 2 diabetes mellitus with diabetic autonomic (poly)neuropathy; K31.84 Gastroparesis; Z79.01 Long term (current) use of anticoagulants; Z79.4 Long term (current) use of insulin; M10.9 Gout, unspecified; G89.29 Other chronic pain; I89.0 Lymphedema, not elsewhere classified; E66.01 Morbid (severe) obesity due to excess calories
CPT/HCPCS: J1644; J1815

== ENCOUNTER 2019-01-24 10:45 | Outpatient (RCR) | payer MEDICARE, BC ==
[~2019-01-24 10:45] MED LIST changes: +ACETAMINOPHEN-H1 TA2 PO; +ACETAMINOPHEN325 M1 PO; +ALBUTEROL2.5 MG/3 M IH; +ALPHAGAN OU; +DOCUSATE SODIUM1 TA3 PO; +LIDOCAINE PAIN1 EACH TOP; +METOCLOPRAMIDE H5 M1 PO; +XYLIMELTS550 MG PO
== END 2019-01-24 11:15 | disposition still patient (30) ==
LOC: PT 10:45
DX: G89.4 Chronic pain syndrome (principal); M54.2 Cervicalgia; M25.522 Pain in left elbow; R29.898 Other symptoms and signs involving the musculoskeletal system; Z74.09 Other reduced mobility

== ENCOUNTER → 2019-02-08 | Outpatient (CLI) | payer MEDICARE, BC ==
[~2019-02-08] VITALS: Ht 160 cm; Wt 124.8 kg
[2019-02-08 11:26] VITALS: BP 145/68
== END ==
LOC: LAB 10:28 → AMSURD 10:28 → EDSTATUS 12:43
DX: E87.70 Fluid overload, unspecified (principal); Z99.3 Dependence on wheelchair

== ENCOUNTER → 2019-07-26 | Outpatient (CLI) | payer MEDICARE, BC ==
[2019-03-07 14:30] VITALS: BP 146/86
[2019-07-26 16:30] LABS: HEMATOCRIT 35.6 % (37.0-47.0); HEMOGLOBIN 11.1 g/dL (12.5-16.0); MEAN PLATELET VOLUME 10.2 fl (7.4-10.4); RED BLOOD COUNT 3.63 M/mm3 (4.10-5.30); RED CELL DISTRIBUTION WIDTH 14.8 % (11.5-14.5); WHITE BLOOD COUNT 8.6 K/mm3 (4.8-10.8)
[2019-07-26 16:36] LABS: ALBUMIN 3.1 g/dL (3.4-4.8); POTASSIUM 3.4 mmol/L (3.5-5.1)
[2019-07-26 16:41] LABS: TOTAL BILIRUBIN 0.1 mg/dL (0.2-1.2)
== END ==
LOC: LAB 16:17
PROVIDERS: Family Medicine
DX: I50.32 Chronic diastolic (congestive) heart failure (principal)